=== PATIENT | female | born 1970 | race Caucasian/White ===

== ENCOUNTER 2016-07-30 16:09 | Emergency (ER) | payer SELFPAY ==
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
--- NOTE | 2016-07-30 16:56 | Diagnostic Imaging Report ---
[facility] [id number] [facility].[address] [address] Report Submission Date: July 30, 2016 4:45:32 PM CDT Patient Study Name: SURYA MARTINEZ Date: July 30, 2016 4:21:48 PM CDT Modality Type: CR Gender: F Description: CHEST : 74 Institution: [facility] Physician: ÁNGELA MCGOWAN ([facility]) - ER Chest and left ribs Clinical history fall injury Technique PA chest and standard rib radiographs Findings: The aorta is tortuous. The left costophrenic angle blunting. Aortic arch calcification is present. Are left 4th and 5th rib fracture deformities which appear to be old healed. No acute fracture is identified. Impression: Old healed left 5th and 6th rib fractures Aortic tortuosity No acute infiltrate acute rib fracture identified Electronically signed on July 30, 2016 4:45:32 PM CDT by: Tereso ROBERTSON
[2016-07-30 16:57] VITALS: BP 122/68
[2016-07-30] MEDS ORDERED: KETOROLAC TROMETHAMINE 60 MG/2 ML VIAL IM ONE (17:00)
[2016-07-30] MEDS ORDERED: KETOROLAC TROMETHAMINE 60 MG/2 ML VIAL ONE (17:01)
== END 2016-07-30 17:09 | disposition home or self-care (01) ==
LOC: ED 16:09
DX: S20.212A Contusion of left front wall of thorax, initial encounter (principal); W19.XXXA Unspecified fall, initial encounter; Y93.9 Activity, unspecified; Y99.9 Unspecified external cause status
CPT/HCPCS: 71101; J1885